=== PATIENT | male | born 1945 | race Caucasian/White ===

== ENCOUNTER 2017-08-04 10:36 | Emergency (ER) | payer MEDICARE, BC ==
[~2017-08-04] VITALS: Ht 185.4 cm; Wt 86.4 kg
[~2017-08-04 10:36] MED LIST: ATIVAN1 MG PO; BAYER CHEWABLE81 MG PO; FOLIC ACID1 MG PO; LEVAQUIN750 MG PO; THIAMINE HCL50 MG PO; VASOTEC10 MG PO
[2017-08-04] MEDS ORDERED: MOBIC7.5 MG PO (15:51)
[2017-08-04] MEDS ORDERED: BENADRYL50 MG PO (15:52)
[2017-08-04] MEDS ORDERED: MULTIPLE VITAMI1 TA1 PO (15:53)
[2017-08-04 16:04] VITALS: BP 130/78; Ht 185.4 cm; Wt 86.4 kg
== END 2017-08-04 14:57 | disposition home or self-care (01) ==
LOC: D.ER 10:36
DX: K59.00 Constipation, unspecified (principal); K56.41 Fecal impaction; I10 Essential (primary) hypertension